=== PATIENT | female | born 1960 | race Caucasian/White ===

== ENCOUNTER 2017-01-06 15:06 | Observation (INO) | payer BC, OTHER ==
[~2017-01-06] VITALS: Ht 152.4 cm; Wt 50.0 kg
[2017-01-06] VITALS (8 sets, daily range): BP systolic 107–123; BP diastolic 53–66; PULSE 78–105; RESP 16–20; TEMP 97.9–98.9; O2SAT 93–97
[~2017-01-06 15:06] MED LIST: DOCU1CAP39 PO; LORTA5 PO
[2017-01-06] MEDS ORDERED: SODIUM CHLOR 0.9% 1000 ML INJ 1,000 ML IV SCH (15:24)
[2017-01-06] MEDS ORDERED: diphenhydrAMINE HCL 50 MG/ML VIAL IVP ONE (15:30)
[2017-01-06] MEDS ORDERED: FAMOTIDINE 20 MG/2 ML VIAL IV PUSH ONE (15:30)
[2017-01-06] MEDS ORDERED: SODIUM CHLORIDE 0.9% FLUSH 10 ML FLUSH IV FLUSH PRN ×2 (15:30→17:30)
[2017-01-06 16:25] LABS: BASOPHIL % 0.4 % (0.0-2.0); EOSINOPHIL % 0.1 % (0.0-4.0); HEMATOCRIT 49.1 % (35.0-46.0); LYMPH % 11.5 % (9.0-44.0); LYMPHOCYTE # 1.5 TH/MM3 (1.0-4.8); MEAN CELL VOLUME 88.5 FL (80.0-100.0); MEAN CORPUSCULAR HEMOGLOBIN 29.2 PG (27.0-34.0); MONO % 1.8 % (0.0-8.0); NEUT % 86.2 % (16.0-70.0); PLATELET COUNT 222 TH/MM3 (150-450); RED BLOOD COUNT 5.54 MIL/MM3 (4.00-5.30); RED CELL DISTRIBUTION WIDTH 13.9 % (11.6-17.2); WHITE BLOOD COUNT 12.8 TH/MM3 (4.0-11.0)
--- NOTE | 2017-01-06 16:27 | PD ---
HPI Chief Complaint: Allergic/Adverse Reaction Time Seen by Provider: 15:31 Travel History International Travel<30 days: No Contact w/Intl Traveler<30days: No Traveled to known affect area: No History of Present Illness HPI Patient is a 56-year-old female presenting to emergency department for evaluation of a possible allergic reaction. Patient states it started yesterday afternoon after 4 PM with redness and itching to her in her wrists, throughout the course of the night the hives began to spread up her arms to her back or abdomen or neck. She states it felt as if it was burning. She also reports feeling nauseated and vomited several times throughout the night. Patient reports feeling lightheaded when she gets up. She denies any abdominal pain, headache, fever, chills, contaminated foods, food allergies, she denies any new soaps, lotions, detergents. Patient did eat dinner at a restaurant last night and again denies any food allergies. PFSH Past Medical History Hx Anticoagulant Therapy: No Arthritis: No Asthma: No Anxiety: No Depression: No Heart Rhythm Problems: No Cancer: No Cardiovascular Problems: No Chemotherapy: No Chest Pain: No COPD: No Cerebrovascular Accident: Yes Diabetes: No Diminished Hearing: No Diverticulitis: Yes Endocrine: No Gastrointestinal Disorders: Yes (C/O ABDOMINAL PAIN, BOWEL OBSTRUCTIONS ) GERD: No Headaches: Yes Hiatal Hernia: No Immune Disorder: No Kidney Stones: No Medical other: Yes Musculoskeletal: Yes Neurologic: Yes (STROKE AT 8 YEARS OLD) Psychiatric: No Reproductive: No Respiratory: No Integumentary: Yes (CELLULITIS LEFT ELBOW 09/2007) Immunizations Current: Yes Migraines: No Radiation Therapy: No Renal Failure: No Sickle Cell Disease: No Thyroid Disease: No Ulcer: Yes Tetanus Vaccination: Unknown Influenza Vaccination: No ?: Not Menopausal: Yes Past Surgical History Abdominal Surgery: Yes ( states 7 hernias with repairs) AICD: No Appendectomy: Yes Arteriovenous Shunt: No Cardiac Surgery: No Section: Yes Ear Surgery: No Endocrine Surgery: No Eye Surgery: No Genitourinary Surgery: Yes (stent placed in left kidney and then removed) Gynecologic Surgery: Yes ( X 1) Insulin Pump: No Joint Replacement: No Oral Surgery: Yes (tonsillectomy) Pacemaker: No Thoracic Surgery: No Tonsillectomy: Yes Other Surgery: Yes (COLOSTOMY REVERSED NOVEMBER/ W [facility] LEFT ABD HERNIA REPAIR) Social History Alcohol Use: No Tobacco Use: Yes (1/2 ppd) Substance Use: No Allergies-Medications (Allergen,Severity, Reaction): Coded Allergies: No Known Allergies (Verified , 01/06/17) Reported Meds & Prescriptions Reported Meds & Active Scripts Active No Active Prescriptions or Reported Medications Review of Systems Except as stated in HPI: all other systems reviewed are Neg Gastrointestinal: Positive: Nausea, Vomiting Skin: Positive Rash, Positive Itching, Positive Hives Physical Exam Narrative GENERAL: Well-developed, well-nourished, alert female. Resting comfortably in no acute distress. SKIN: Warm and dry. Hives noted to anterior chest wall, back, abdomen, thighs. HEAD: Atraumatic. Normocephalic. EYES: Pupils equal and round. No scleral icterus. No injection or drainage. ENT: No nasal bleeding or discharge. Mucous membranes pink and moist. NECK: Trachea midline. No JVD. CARDIOVASCULAR: Regular rate and rhythm. RESPIRATORY: No accessory muscle use. Clear to auscultation. Breath sounds equal bilaterally. No wheezes, rhonchi, rales noted. GASTROINTESTINAL: Abdomen soft, non-tender, nondistended. Hepatic and splenic margins not palpable. MUSCULOSKELETAL: Extremities without clubbing, cyanosis. Edema to bilateral hands, nonpitting. No obvious deformities. NEUROLOGICAL: Awake and alert. No obvious cranial nerve deficits. Motor grossly within normal limits. Five out of 5 muscle strength in the arms and legs. Normal speech. PSYCHIATRIC: Appropriate mood and affect; insight and judgment normal. Data Data Last Documented VS Vital Signs Date Time Temp Pulse Resp B/P (MAP) Pulse Ox O2 Delivery O2 Flow Rate FiO2 01/06/17 17:00 85 18 118/53 (74) 97 Room Air 01/06/17 15:36 98.9 Orders Orders Complete Blood Count With Diff (01/06/17 15:24) Comprehensive Metabolic Panel (01/06/17 15:24) Ecg Monitoring (01/06/17 15:24) Iv Access Insert/Monitor (01/06/17 15:24) Oximetry (01/06/17 15:24) Diphenhydramine Inj (Benadryl Inj) (01/06/17 15:30) Famotidine Inj (Pepcid Inj) (01/06/17 15:30) Sodium Chlor 0.9% 1000 Ml Inj (Ns 1000 M (01/06/17 15:24) Sodium Chloride 0.9% Flush (Ns Flush) (01/06/17 15:30) Admit Order (Ed Use Only) (01/06/17 17:30) Labs Laboratory Tests Test 01/06/17 15:45 White Blood Count 12.8 TH/MM3 Red Blood Count 5.54 MIL/MM3 Hemoglobin 16.2 GM/DL Hematocrit 49.1 % Mean Corpuscular Volume 88.5 FL Mean Corpuscular Hemoglobin 29.2 PG Mean Corpuscular Hemoglobin Concent 33.0 % Red Cell Distribution Width 13.9 % Platelet Count 222 TH/MM3 Mean Platelet Volume 9.4 FL Neutrophils (%) (Auto) 86.2 % Lymphocytes (%) (Auto) 11.5 % Monocytes (%) (Auto) 1.8 % Eosinophils (%) (Auto) 0.1 % Basophils (%) (Auto) 0.4 % Neutrophils # (Auto) 11.0 TH/MM3 Lymphocytes # (Auto) 1.5 TH/MM3 Monocytes # (Auto) 0.2 TH/MM3 Eosinophils # (Auto) 0.0 TH/MM3 Basophils # (Auto) 0.0 TH/MM3 CBC Comment AUTO DIFF Differential Total Cells Counted 100 Neutrophils % (Manual) 83 % Band Neutrophils % 12 % Lymphocytes % 3 % Monocytes % 2 % Neutrophils # (Manual) 12.2 TH/MM3 Differential Comment FINAL DIFF MANUAL Blood Urea Nitrogen 13 MG/DL Creatinine 1.09 MG/DL Random Glucose 133 MG/DL Total Protein 6.9 GM/DL Albumin 3.5 GM/DL Calcium Level 9.1 MG/DL Alkaline Phosphatase 67 U/L Aspartate Amino Transf (AST/SGOT) 26 U/L Alanine Aminotransferase (ALT/SGPT) 11 U/L Total Bilirubin 0.8 MG/DL Sodium Level 137 MEQ/L Potassium Level 4.0 MEQ/L Chloride Level 103 MEQ/L Carbon Dioxide Level 23.3 MEQ/L Anion Gap 11 MEQ/L Estimat Glomerular Filtration Rate 52 ML/MIN MDM Medical Decision Making Medical Screen Exam Complete: Yes Emergency Medical Condition: Yes Interpretation(s) Vital Signs Date Time Temp Pulse Resp B/P (MAP) Pulse Ox O2 Delivery O2 Flow Rate FiO2 01/06/17 15:40 96 Room Air 01/06/17 15:36 98.9 103 20 108/58 (75) 94 01/06/17 15:21 98.1 105 119/64 (82) 96 Differential Diagnosis Urgent reaction versus anaphylaxis versus respiratory failure versus metabolic of normality versus other Narrative Course Patient is 56-year-old female presenting for evaluation for possible allergic reaction. Patient presented to the emergency department via EMS, she was given 25 mg Benadryl IV, 125 mg of Solu-Medrol, 0.3 mg of epinephrine and albuterol nebulizer treatment in route to the hospital. On arrival patient was mildly tachycardic and oxygen saturation was 94%. Labs ordered and pending. Patient will be given an additional 25 mg of IV Benadryl and IV famotidine. CBC with a white count of 12.8 with left shift with bandemia Chemistry reviewed, no acute abnormalities identified Patient was reassessed, she continues to be symptomatic. For this reason patient will be admitted under observation, discussed with Dr. Zayas who accepted admission. Orders placed. Diagnosis Primary Impression: Anaphylactic reaction Qualified Codes: T78.2XXA - Anaphylactic shock, unspecified, initial encounter Admitting Information Admitting Physician Requests: Observation Scripts No Active Prescriptions or Reported Meds Condition: Stable [facility] Jan 06, 2017 16:26
[2017-01-06 16:29] LABS: HEMO FLAGS AUTO DIFF
[2017-01-06 16:50] LABS: ALKALINE PHOSPHATASE 67 U/L (45-117); ALT (GPT) 11 U/L (10-53); ANION GAP 11 MEQ/L (5-15); AST (GOT) 26 U/L (15-37); BICARBONATE 23.3 MEQ/L (21.0-32.0); BLOOD UREA NITROGEN 13 MG/DL (7-18); CHLORIDE 103 MEQ/L (98-107); GLOMERULAR FILTRATION RATE 52 ML/MIN (>89); SODIUM (NA) 137 MEQ/L (136-145); TOTAL BILIRUBIN ADULT 0.8 MG/DL (0.2-1.0)
[2017-01-06 16:56] LABS: BANDS 12 % (0-6); NEUTROPHIL # MANUAL DIFF 12.2 TH/MM3 (1.8-7.7); POLYS (SEG NEUTROPHILS) 83 % (16-70); WBC DIFF SAMPLE 100
[2017-01-06 16:57] LABS: SCAN/DIFF FINAL DIFF MANUAL
[2017-01-06] MEDS ORDERED: NALOXONE HCL 0.4 MG/ML AMP IV PRN (17:30)
[2017-01-06] MEDS ORDERED: ONDANSETRON HCL 4 MG/2 ML VIAL IVP PRN (17:30)
[2017-01-06] MEDS ORDERED: ACETAMINOPHEN 325 MG TAB PO PRN (17:30)
[2017-01-06] MEDS ORDERED: SENNOSIDES 8.6 MG TAB PO PRN (17:30)
[2017-01-06] MEDS ORDERED: MAGNESIUM HYDROXIDE SUSP 30 ML CUP PO PRN (17:30)
[2017-01-06] MEDS ORDERED: BISACODYL 10 MG SUPP RECTAL PRN (17:30)
[2017-01-06] MEDS ORDERED: LACTULOSE SYRUP 20 GM/30 ML CUP PO PRN (17:30)
[2017-01-06] MEDS ORDERED: diphenhydrAMINE HCL 50 MG CAP PO SCH (17:30)
--- NOTE | 2017-01-06 17:53 | HHI.HP ---
[facility] Service [facility] Primary Care Physician No Primary Care Physician Admission Diagnosis anaphylactic reaction Diagnoses: Chief Complaint: Diffuse pruritic rash and shortness of breathing Travel History International Travel<30 Days: No Contact w/Intl Traveler <30 Da: No Traveled to Known Affected Are: No History of Present Illness This is a 56-year-old female with no past medical history who presented with diffuse pruritic rash and soreness of breathing. Patient stated that last night she went to dinner and had a variety bladder including cheese sticks, pieces of ribs, marinated chicken, and salsa. She stated she didn't went home and had severe itchiness and rash on her right arm. The rash then spread to her entire body. She said itchiness was severe. She stated that she try to sleep it off but later developed shortness of breathing. Patient apply triamcinolone to her rash with no improvement. Patient finally went to the emergency department. She stated that she did not take any new medication. In the ED patient was found to have diffuse rash and wheezing. She was given epinephrine, Solu-Medrol and Benadryl with improvement. When I examined patient she denies any shortness of breathing and stated that medication helped her. she continues to have itchiness but that has improved. All other review of symptoms reviewed and negative. Past Family Social History Past Medical History Denies any past medical history. Past Surgical History Appendectomy Colostomy placement and reversal secondary to perforation from severe constipation multiple hernia repairs Reported Medications Reported Meds & Active Scripts Active No Active Prescriptions or Reported Medications Allergies: Coded Allergies: No Known Allergies (Verified , 01/06/17) Active Ordered Medications Current Medications Diphenhydramine HCl (Benadryl Inj) 25 mg ONCE ONCE IVP Last administered on 15:48; Start 01/06/17 at 15:30; Stop 01/06/17 at 15:31; Status DC Famotidine (Pepcid Inj) 20 mg ONCE ONCE IV PUSH Last administered on 15:49; Start 01/06/17 at 15:30; Stop 01/06/17 at 15:31; Status DC Sodium Chloride 1,000 ml @ 1,000 mls/hr Q1H IV Last administered on 01/06/17t 15:49; Start 01/06/17 at 15:24; Stop 01/06/17 at 16:23; Status DC Sodium Chloride (NS Flush) 2 ml UNSCH PRN IV FLUSH FLUSH AFTER USING IV ACCESS Last administered on 01/06/17 15:49; Start 01/06/17 at 15:30 Sodium Chloride (NS Flush) 2 ml UNSCH PRN IV FLUSH FLUSH AFTER USING IV ACCESS ; Start 01/06/17 at 17:30; Status UNV Sodium Chloride (NS Flush) 2 ml BID IV FLUSH ; Start 01/06/17 at 21:00; Status UNV Acetaminophen (Tylenol) 650 mg Q4H PRN PO TEMP > 100.4; Start 01/06/17 at 17:30 ; Status UNV Ondansetron HCl (Zofran Inj) 4 mg Q6H PRN IVP NAUSEA OR VOMITING; Start at 17:30; Status UNV Naloxone HCl (Narcan Inj) 0.4 mg UNSCH PRN IV SEE LABEL COMMENTS; Start at 17:30; Status UNV Senna/Docusate Sodium (Ariella-Colace) 1 tab BID PO ; Start 01/06/17 at 21:00; Status UNV Magnesium Hydroxide (Milk Of Magnesia Liq) 30 ml Q12H PRN PO MILD - MODERATE CONSTIPATION; Start 01/06/17 at 17:30; Status UNV Sennosides (Senokot) 17.2 mg Q12H PRN PO MODERATE - SEVERE CONSTIPATION; Start 01/06/17 at 17:30; Status UNV Bisacodyl (Dulcolax Supp) 10 mg DAILY PRN RECTAL SEVERE CONSITIPATION; Start at 17:30; Status UNV Lactulose (Lactulose Liq) 30 ml DAILY PRN PO SEVERE CONSITIPATION; Start at 17:30; Status UNV Methylprednisolone Sodium Succinate (SoluMEDROL INJ) 40 mg Q6HR IV PUSH ; Start 01/06/17 at 18:00; Status UNV Diphenhydramine HCl (Benadryl) 50 mg Q6H PO ; Start 01/06/17 at 17:30; Status UNV Family History Reviewed family history and all negative. Social History Smokes tobacco about half a pack a day for 15 years. Denies any alcohol illicit drug use. Physical Exam Vital Signs Vital Signs Date Time Temp Pulse Resp B/P (MAP) Pulse Ox O2 Delivery O2 Flow Rate FiO2 01/06/17 17:00 85 18 118/53 (74) 97 Room Air 01/06/17 16:00 96 16 107/58 (74) 96 Room Air 01/06/17 15:40 96 Room Air 01/06/17 15:36 98.9 103 20 108/58 (75) 94 01/06/17 15:21 98.1 105 119/64 (82) 96 Physical Exam GENERAL: This is a well-nourished, well-developed patient, in no apparent distress. SKIN: Diffuse wheals on body. HEAD: Atraumatic. Normocephalic. No temporal or scalp tenderness. EYES: Pupils equal round and reactive. Extraocular motions intact. No scleral icterus. No injection or drainage. ENT: Nose without bleeding, purulent drainage or septal hematoma. Throat without erythema, tonsillar hypertrophy or exudate. Uvula midline. Airway patent. NECK: Trachea midline. No JVD or lymphadenopathy. Supple, nontender, no meningeal signs. CARDIOVASCULAR: Regular rate and rhythm without murmurs, gallops, or rubs. RESPIRATORY: Clear to auscultation. Breath sounds equal bilaterally. No wheezes , rales, or rhonchi. GASTROINTESTINAL: Abdomen soft, non-tender, nondistended. No hepato-splenomegaly , or palpable masses. No guarding. MUSCULOSKELETAL: Extremities without clubbing, cyanosis, or edema. No joint tenderness, effusion, or edema noted. No calf tenderness. Negative Homans sign bilaterally. NEUROLOGICAL: Awake and alert. Cranial nerves II through XII intact. Motor and sensory grossly within normal limits. Five out of 5 muscle strength in all muscle groups. Normal speech. Laboratory Laboratory Tests Test 01/06/17 15:45 White Blood Count 12.8 Red Blood Count 5.54 Hemoglobin 16.2 Hematocrit 49.1 Mean Corpuscular Volume 88.5 Mean Corpuscular Hemoglobin 29.2 Mean Corpuscular Hemoglobin Concent 33.0 Red Cell Distribution Width 13.9 Platelet Count 222 Mean Platelet Volume 9.4 Neutrophils (%) (Auto) 86.2 Lymphocytes (%) (Auto) 11.5 Monocytes (%) (Auto) 1.8 Eosinophils (%) (Auto) 0.1 Basophils (%) (Auto) 0.4 Neutrophils # (Auto) 11.0 Lymphocytes # (Auto) 1.5 Monocytes # (Auto) 0.2 Eosinophils # (Auto) 0.0 Basophils # (Auto) 0.0 CBC Comment AUTO DIFF Differential Total Cells Counted 100 Neutrophils % (Manual) 83 Band Neutrophils % 12 Lymphocytes % 3 Monocytes % 2 Neutrophils # (Manual) 12.2 Differential Comment FINAL DIFF MANUAL Blood Urea Nitrogen 13 Creatinine 1.09 Random Glucose 133 Total Protein 6.9 Albumin 3.5 Calcium Level 9.1 Alkaline Phosphatase 67 Aspartate Amino Transf (AST/SGOT) 26 Alanine Aminotransferase (ALT/SGPT) 11 Total Bilirubin 0.8 Sodium Level 137 Potassium Level 4.0 Chloride Level 103 Carbon Dioxide Level 23.3 Anion Gap 11 Estimat Glomerular Filtration Rate 52 Result Diagram: 01/06/17 1545 01/06/17 1545 Caprini VTE Risk Assessment Caprini VTE Risk Assessment: No/Low Risk (score <= 1) Caprini Risk Assessment Model Point Value = 1 Point Value = 2 Point Value = 3 Point Value = 5 Age 41-60 Minor surgery BMI > 25 kg/m2 Swollen legs Varicose veins or History of unexplained or recurrent spontaneous Oral contraceptives or hormone replacement Sepsis (< 1 month) Serious lung disease, including pneumonia (< 1 month) Abnormal pulmonary function Acute myocardial infarction Congestive heart failure (< 1 month) History of inflammatory bowel disease Medical patient at bed rest Age 61-74 Arthroscopic surgery Major open surgery (> 45 min) Laparoscopic surgery (> 45 min) Malignancy Confined to bed (> 72 hours) Immobilizing plaster cast Central venous access Age >= 75 History of VTE Family history of VTE Factor V Leiden Prothrombin [id number] Lupus anticoagulant Anticardiolipin antibodies Elevated serum homocysteine Heparin-induced thrombocytopenia Other congenital or acquired thrombophilia Stroke (< 1 month) Elective arthroplasty Hip, pelvis, or leg fracture Acute spinal cord injury (< 1 month) Prophylaxis Regimen Total Risk Factor Score Risk Level Prophylaxis Regimen 0-1 Low Early ambulation 2 Moderate Order ONE of the following: *Sequential Compression Device (SCD) *Heparin 5000 units SQ BID 3-4 Higher Order ONE of the following medications: *Heparin 5000 units SQ TID *Enoxaparin/Lovenox 40 mg SQ daily (WT < 150 kg, CrCl > 30 mL/min) *Enoxaparin/Lovenox 30 mg SQ daily (WT < 150 kg, CrCl > 10-29 mL/min) *Enoxaparin/Lovenox 30 mg SQ BID (WT < 150 kg, CrCl > 30 mL/min) AND/OR *Sequential Compression Device (SCD) 5 or more Highest Order ONE of the following medications: *Heparin 5000 units SQ TID (Preferred with Epidurals) *Enoxaparin/Lovenox 40 mg SQ daily (WT < 150 kg, CrCl > 30 mL/min) *Enoxaparin/Lovenox 30 mg SQ daily (WT < 150 kg, CrCl > 10-29 mL/min) *Enoxaparin/Lovenox 30 mg SQ BID (WT < 150 kg, CrCl > 30 mL/min) AND *Sequential Compression Device (SCD) Assessment and Plan Assessment and Plan 56-year-old female who developed severe pruritic diffuse rash and shortness of breathing Anaphylactic/allergic reaction -Unsure what elicits symptoms. May be secondary to what patient ingested for dinner. Most likely patient will need testing with an car conditioner. -Patient was given Solu-Medrol, epinephrine, and Benadryl with improvement of symptoms. -She was wheezing but when I examine patient she no longer is wheezing. -Will continue with Solu-Medrol and Benadryl. Continue to monitor. -Will need to avoid eliciting factors. -Education given to patient. Upon discharge she will need an EpiPen. Mild leukocytosis -Most likely due to an inflammatory response. No signs of infection. Continue to monitor. DVT prophylaxis -Low risk, encourage ambulation Code Status full Discussed Condition With patient Yaa Zayas MD Jan 06, 2017 17:53
[2017-01-06] MEDS: DOCUSATE SODIUM 50 MG/SENNA 8.6 MG TAB PO SCH (23:08)
[2017-01-06] MEDS: SODIUM CHLORIDE 0.9% FLUSH 10 ML FLUSH IV FLUSH SCH (23:08)
[2017-01-06] MEDS: diphenhydrAMINE HCL 50 MG CAP PO SCH (23:09)
[2017-01-06] MEDS: methylPREDNISolone SOD SUCC 40 MG/1 ML VIAL IV PUSH SCH (23:09)
[2017-01-07] VITALS: PULSE 72
[2017-01-07 00:30] VITALS: BP 121/56; PULSE 72; RESP 18; TEMP 98; O2SAT 94
[2017-01-07 04:00] VITALS: PULSE 78
[2017-01-07 05:04] VITALS: BP 113/59; PULSE 70; RESP 16; TEMP 97.9; O2SAT 95
[2017-01-07] MEDS: methylPREDNISolone SOD SUCC 40 MG/1 ML VIAL IV PUSH SCH (05:13)
[2017-01-07] MEDS: diphenhydrAMINE HCL 50 MG CAP PO SCH (05:13)
--- NOTE | 2017-01-07 08:07 | HHI.PR ---
Subjective Remarks Follow-up for anaphylaxis. The patient continues to complain of diffuse pruritic rash, unchanged overnight. Chief complaint is diffuse itching. She denies any further shortness of breath. She denies having any lip, tongue, or throat swelling. She's never had any symptoms like this before. The only thing she can think of is that she went out to eat at [employer]'s prior to the rash starting. She denies any new medications, soaps, detergents. She hasn't been outside or been exposed to any new plants or insect bites. Objective Vitals Vital Signs Date Time Temp Pulse Resp B/P (MAP) Pulse Ox O2 Delivery O2 Flow Rate FiO2 01/07/17 05:04 97.9 70 16 113/59 (77) 95 01/07/17 04:00 78 01/07/17 00:30 98.0 72 18 121/56 (77) 94 01/07/17 00:00 72 01/06/17 20:20 78 01/06/17 20:05 97.9 81 20 110/58 (75) 93 01/06/17 18:49 98.5 81 17 123/66 (85) 96 01/06/17 18:37 57 18 112/57 (75) 97 01/06/17 17:00 85 18 118/53 (74) 97 Room Air 01/06/17 16:00 96 16 107/58 (74) 96 Room Air 01/06/17 15:40 96 Room Air 01/06/17 15:36 98.9 103 20 108/58 (75) 94 01/06/17 15:21 98.1 105 119/64 (82) 96 I/O 01/06/17 01/06/17 01/06/17 01/07/17 01/07/17 01/07/17 07:00 15:00 23:00 07:00 15:00 23:00 Intake Total 1000 ml Balance 1000 ml Intake IV Total 1000 ml Result Diagram: 01/06/17 1545 01/06/17 1545 Imaging GENERAL: Well-developed well-nourished. In no acute distress. SKIN: Warm and dry. Urticarial wheals on the trunk and extremities. HEENT: Normocephalic. Pupils equal and round. Mucous membranes pink and moist. No oral edema. Airway patent. CARDIOVASCULAR: Regular rate and rhythm. No murmur appreciated. RESPIRATORY: No accessory muscle use. Clear to auscultation. Breath sounds equal bilaterally. No wheezing. GASTROINTESTINAL: Abdomen soft, non-tender, nondistended. Bowel sounds x4. MUSCULOSKELETAL: No obvious deformities. No clubbing or cyanosis. No edema. NEUROLOGICAL: Awake and alert. No focal neurological deficits. Moves upper and lower extremities spontaneously. Normal speech. PSYCHIATRIC: Appropriate mood and affect; insight and judgment normal. A/P Assessment and Plan 56-year-old female who developed severe pruritic diffuse rash and shortness of breathing Anaphylactic/allergic reaction: Shortness of breath has improved. Patient needs to have an urticarial rash. -Unsure what elicits symptoms. May be secondary to what patient ingested for dinner. Most likely patient will need testing with an sorting machine operator as outpatient. -Patient was given Solu-Medrol, epinephrine, and Benadryl with improvement of symptoms. -Change IV Solu-Medrol to oral prednisone -Decrease scheduled oral Benadryl from 50 mg to 25 mg. -Upon discharge she will need an EpiPen. -Calamine lotion as needed for itching Mild leukocytosis -Most likely due to an inflammatory response. Afebrile. Continue to monitor. DVT prophylaxis -SCDs Discharge Planning Monitor response to current oral steroids and antihistamines. If no further breathing issues later today, then discharge planning, discussed with patient and Dr. James. Bassam Vickers Jan 07, 2017 08:07
[2017-01-07] MEDS ORDERED: CALAMINE LOTION 180 APPLIC/180 ML BTL TOPICAL PRN (08:15)
[2017-01-07] MEDS ORDERED: CALAMINE LOTION 180 APPLIC/180 ML BTL TOPICAL ONE (08:15)
[2017-01-07 08:57] VITALS: BP 116/63; PULSE 80; RESP 16; TEMP 97.6; O2SAT 96
[2017-01-07] MEDS ORDERED: predniSONE 20 MG TAB PO SCH (09:00)
[2017-01-07 09:04] LABS: HEMATOCRIT 36.9 % (35.0-46.0); MEAN CELL VOLUME 87.5 FL (80.0-100.0); MEAN CORPUSCULAR HEMOGLOBIN 29.3 PG (27.0-34.0); MEAN CORPUSCULAR HGB CONC 33.5 % (32.0-36.0); PLATELET COUNT 159 TH/MM3 (150-450); RED BLOOD COUNT 4.22 MIL/MM3 (4.00-5.30); RED CELL DISTRIBUTION WIDTH 13.6 % (11.6-17.2); REVIEW FLAG FINAL; WHITE BLOOD COUNT 12.4 TH/MM3 (4.0-11.0)
[2017-01-07 09:24] LABS: BICARBONATE 24.1 MEQ/L (21.0-32.0)
[2017-01-07] MEDS: DOCUSATE SODIUM 50 MG/SENNA 8.6 MG TAB PO SCH (10:44)
[2017-01-07] MEDS: diphenhydrAMINE HCL 25 MG CAP PO SCH ×2 (10:44→17:00)
[2017-01-07] MEDS: SODIUM CHLORIDE 0.9% FLUSH 10 ML FLUSH IV FLUSH SCH (10:49)
[2017-01-07 12:11] VITALS: BP 111/61; PULSE 78; RESP 16; TEMP 98.7; O2SAT 92
[2017-01-07] MEDS ORDERED: BENA25CA4 PO (14:28)
[2017-01-07] MEDS ORDERED: PRED20 PO (14:28)
[2017-01-07] MEDS ORDERED: EPIP0.3I IM (14:29)
== END 2017-01-07 18:21 | disposition home or self-care (01) ==
LOC: NEPD 15:06 → NEDA 17:31 → NEPGCP 19:14
PROVIDERS: ADMIT Family Medicine; ATTEND Family Medicine
DX: T78.2XXA Anaphylactic shock, unspecified, initial encounter (principal); L29.9 Pruritus, unspecified; R06.02 Shortness of breath; K59.00 Constipation, unspecified; F17.200 Nicotine dependence, unspecified, uncomplicated
CPT/HCPCS: 80048; 80053; 85007; 85027; 96361; 96374; 96375; 96376; 99285; G0378; J1200; J2920; J7030; J7512; Q0163